=== PATIENT | female | born 1940 | race Caucasian/White ===

== ENCOUNTER 2017-09-28 09:43 | Day surgery (SDC) | payer OTHER ==
[~2017-09-28 09:43] MED LIST: DOXY100T PO; ENAL10TA7 PO; ENAL20TA PO; GLIM4TAB PO; ISOS120T14 PO; METF-324 PO; METO50TA OR; MEVA40TA PO; OXYC-360 PO; PRED20 PO; TUSSSUS PO; VENTAER INH; VIGA0.5D RIGHT EYE
[2017-09-28 10:24] VITALS: BP 124/75; PULSE 76; RESP 14; TEMP 97.6; O2SAT 95
[2017-09-28 11:30] VITALS: BP 119/62; PULSE 75; RESP 18; TEMP 98.3; O2SAT 95
[2017-09-28 11:45] VITALS: BP 119/64; PULSE 85; RESP 18; O2SAT 97
[2017-09-28] MEDS ORDERED: LIDOCAINE HCL 1% 20 ML VIAL ONE (11:45)
[2017-09-28 12:14] LABS: TOTAL PROTEIN,PERITONEAL FLUID 3.2 GM/DL
[2017-09-28] MEDS ORDERED: ALBUMIN HUMAN 25% 12.5GM-W/25GM FOR 37.5GM IV ONE (12:15)
[2017-09-28] MEDS ORDERED: ALBUMIN HUMAN 25% 25GM-W/12.5GM FOR 37.5GM IV ONE (12:15)
--- NOTE | 2017-09-28 16:42 | RADRPT ---
EXAM DATE/TIME: 09/28/2017 10:11 [place] COMPARISON: No previous studies available for comparison. EXTERNAL COMPARISON: [facility], PET/CT TUMOR, Aug 25 2017, [facility], CT ABDOMEN & PELVIS W/O CONTRAST, August 09, 2017. INDICATIONS : Ascites. MEDICAL HISTORY : Hypertension. Congestive heart failure. Hypercholesterolemia. Diabetes. Coronary artery disease. COPD . Hyperlipidemia. Angina pectoris. Neuropathy. Osteoporosis. Atherosclerosis of aorta. SURGICAL HISTORY : Tonsillectomy. Appendectomy. Right ovarian tube removal. ENCOUNTER: Initial ACUITY: 1 day PAIN SCORE: 0/10 LOCATION: Left lower quadrant FLUID: Total volume of 5,900 cc of cloudy, yellow fluid was removed. Fluid was sent to lab for ordered studies. Post procedure scanning reveals no hematoma or other complication. TECHNIQUE: 1. Ultrasound guidance for abdominal paracentesis. 2. Paracentesis. The risks, benefits, and alternatives to ultrasound guided paracentesis were explained to the patient in detail including the risk of bleeding and infection. Written and verbal informed consent was obt ained. With the patient on the ultrasound table, ultrasound imaging was used to select the most appropriate approach for paracentesis. Overlying skin was prepped and draped in the usual sterile fashion and wi th a local anesthetic, a dermatotomy was made with an 11 blade scalpel. A 6 [place] Huh-P-gszydbod ca theter was introduced into the peritoneal cavity and fluid was collected. The patient tolerated the procedure well and left the ultrasound suite in stable condition. CONCLUSION: Uncomplicated ultrasound guided paracentesis. Song Whaley MD on September 28, 2017 at 16:39 Board Certified Radiologist. This report was verified electronically.
[2017-09-29 12:31] LABS: AMYLASE BODY FLUID 8 U/L; AMYLASE BODY FLUID TYPE PERITONEAL
== END 2017-09-28 12:37 | disposition home or self-care (01) ==
LOC: HRAD 09:43 → HRIP 09:49 → HRAD 12:37
PROVIDERS: ATTEND Family Medicine
DX: R18.8 Other ascites (principal); I50.9 Heart failure, unspecified; I11.0 Hypertensive heart disease with heart failure; E78.00 Pure hypercholesterolemia, unspecified; E11.9 Type 2 diabetes mellitus without complications; I25.119 Atherosclerotic heart disease of native coronary artery with unspecified angina pectoris; J44.9 Chronic obstructive pulmonary disease, unspecified; M81.0 Age-related osteoporosis without current pathological fracture; E78.5 Hyperlipidemia, unspecified; I70.0 Atherosclerosis of aorta; G62.9 Polyneuropathy, unspecified
CPT/HCPCS: 49083; 82040; 82042; 82150; 82945; 83615; 84157; 88112; 88305; 96365; C1729; P9047